=== PATIENT | female | born 1970 | race African-American/Black ===

== ENCOUNTER 2018-02-22 08:16 | Emergency (ER) | payer SELFPAY ==
[~2018-02-22] VITALS: Ht 175.3 cm; Wt 95.3 kg
[~2018-02-22 08:16] MED LIST: CYCLOBENZAPRINE10 MG ORAL; DIAZEPAM5 MG/1 M2 PO; IBUPROFEN600 MG ORAL; IBUPROFEN800 MG ORAL; NITROFURANTOIN100 M2 ORAL; NKM; NORCO 10-325 T1 EACH ORAL; NORCO 5-325 TA1 EACH ORAL; OCUFLOX5 ML OP; PERCOCET 5-3251 EACH ORAL; TRAMADOL HCL50 MG ORAL; TYLENOL EXTRA500 MG ORAL
--- NOTE | 2018-02-22 08:24 | NUR ---
ED Nurse Note: Pt coming from home due to falling down 2 steps of stairs last night at 2200. Pt is complaining of 10/10 right foot pain radiating to her right hip. Pt states that she cannot feel her toes and when she fell last night she heard her foot crack. Right foot and ankle noted to have swelling. No head trauma. A + O x4. Skin warm to touch.
[2018-02-22] MEDS ORDERED: HYDROcodone/Acetamin 10/325 tab ORAL ONE (08:30)
[2018-02-22] MEDS ORDERED: Ketorolac 60mg Inj IM ONE (08:30)
[2018-02-22] MEDS ORDERED: Ketorolac 30mg Inj ONE (08:31)
--- NOTE | 2018-02-22 08:31 | Emergency Room Report ---
History of Present Illness General Chief Complaint: right ankle pain Present Illness HPI Patient is a 47-year-old female presented after increased right ankle and foot pain. Patient had recent injury reportedly last night. Patient stated that this occurred approximately 10 PM. Patient had been walking down stairs and had injured her right ankle down approximately 2-3 steps. She reports having some increased pain patient had been able to go back up stairs with assistance last night. Patient reports of increased pain and swelling. Patient reports being a smoker. She denies of the locations of injury. She denies any headache or other extremity pain. Allergies: Coded Allergies: No Known Allergies (Unverified , 01/02/13) Patient History Past Medical History: see triage record Reviewed Nursing Documentation: PMH: Agreed; PSxH: Agreed Nursing Documentation-PMH Hx Cardiac Problems: No Review of Systems All Other Systems: negative except mentioned in HPI Physical Exam Sp02 EP Interpretation: reviewed, normal General Appearance: normal inspection, well appearing, no apparent distress, alert, mild distress Head: atraumatic ENT: normal ENT inspection, hearing grossly normal, normal voice Neck: normal inspection, full range of motion, supple, no bony tend Respiratory: normal inspection, lungs clear, normal breath sounds, no respiratory distress, no retraction, no wheezing Cardiovascular #1: regular rate, rhythm Gastrointestinal: normal inspection, normal bowel sounds, non tender, soft, no guarding, no hernia Genitourinary: no CVA tenderness Musculoskeletal: back normal, decreased range of motion - right ankle, swelling - right ankle, normal pulses, normal cap refill, tender - anterior ankle,lateral malleolus Neurologic: normal inspection, alert, responsive, speech normal Psychiatric: normal inspection, judgement/insight normal, mood/affect normal Skin: normal inspection, normal color, no rash Medical Decision Making Diagnostic Impression: Primary Impression: High ankle sprain ER Course Patient presented for ankle pain. Differential diagnosis included was not limited to sprain, fracture, dislocation, cellulitis, vascular insufficiency. X -ray imaging of the ankle was ordered. X-ray imaging 3 views interpreted by me showed soft tissue swelling without evident fracture. Patient was placed in a posterior splint and given crutches. The patient's extremity appears well perfused. She has good pulses and there is no sign of vascular compromise. Patient given pain medications. She is advised to keep her ankle elevated and follow-up with orthopedics. Status: improved Disposition: HOME, SELF-CARE Condition: Stable Scripts Ibuprofen* (MOTRIN*) 600 Mg Tablet 600 MG ORAL Q8H PRN for For Pain, #30 TAB 0 Refills Prov: Driss Zambrano MD 02/22/18 Hydrocodone Bit/Acetaminophen 10-325* (NORCO 10-325*) 1 Each Tablet 1 TAB ORAL Q6H PRN for For Pain, #10 TAB 0 Refills PRN PAIN Prov: Driss Zambrano MD 02/22/18 Driss Zambrano MD Feb 22, 2018 08:31
--- NOTE | 2018-02-22 08:42 | NUR ---
ED Nurse Note: Notified pt of need urine from her and pt stated that she has had nothing to drink since last night. Still has no urge to go. Placed a commode at the bedside. Will continue to monitor.
--- NOTE | 2018-02-22 08:49 | NUR ---
ED Nurse Note: Xray at the bedside.
[2018-02-22] MEDS ORDERED: NORCO 10-325 T1 EACH ORAL (09:11)
[2018-02-22] MEDS ORDERED: IBUPROFEN600 MG ORAL (09:11)
[2018-02-22 09:19] VITALS: BP 131/83
--- NOTE | 2018-02-22 09:35 | NUR ---
ED Nurse Note: Waiting for transportation.
--- NOTE | 2018-02-22 09:44 | NUR ---
ED Nurse Note: Discharge instructions given to pt. Answered all questions. Verbalized understanding. No acute distres noted. A+ O x4. Ambulatory. Left ER w/ steady gait. Left w/ all belongings. ID band removed.
--- NOTE | 2018-02-22 15:48 | Diagnostic Imaging Report ---
Indication: Ankle pain, status post fall one day ago Technique: 3 views of the right ankle Comparison: none Findings: No acute fractures. No dislocations. The joint spaces are preserved Impression: Negative
== END 2018-02-22 09:43 | disposition home or self-care (01) ==
LOC: EMR 08:34
DX: S93.401A Sprain of unspecified ligament of right ankle, initial encounter (principal); Y93.01 Activity, walking, marching and hiking; Y92.89 Other specified places as the place of occurrence of the external cause
CPT/HCPCS: 29515; 99283

== ENCOUNTER 2018-06-14 10:25 | Emergency (ER) | payer SELFPAY ==
[~2018-06-14] VITALS: Ht 177.8 cm; Wt 97.5 kg
[2018-06-14 10:41] VITALS: BP 105/71
--- NOTE | 2018-06-14 10:43 | NUR ---
ED Nurse Note: Patient walked in to ER with daughter for Rt ankle pain which started from 2 months ago spraining and pt did not get better since and Lt index finger pain 7/10 whcih started 2 weeks ago since she hit it to car door. edematous noted on Lt 2nd finger. skin clean and intact. pt aao x4 and calm and cooperative.
--- NOTE | 2018-06-14 11:02 | Emergency Room Report ---
History of Present Illness General Chief Complaint: Upper Extremity Injury Source: Patient Present Illness HPI Patient present with complaints of discomfort to the right ankle and the left hand reports that she injured these about 2 weeks ago Hitting it on a car door Patient has discomfort in the base dorsally of the left index and middle finger pain is worse with bending Also the ankle on the right side has increased pain with bearing weight denies any other knee pain denies any head injury Allergies: Coded Allergies: No Known Allergies (Unverified , 01/02/13) Patient History Past Medical History: see triage record Pertinent Family History: none Now: No Reviewed Nursing Documentation: PMH: Agreed; PSxH: Agreed Nursing Documentation-PMH Past Medical History: No History, Except For Hx Cardiac Problems: No - Fibroids Cyst/ Hysterectomy Review of Systems All Other Systems: negative except mentioned in HPI Physical Exam Vital Signs Date Time Temp Pulse Resp B/P (MAP) Pulse Ox O2 Delivery O2 Flow Rate FiO2 06/14/18 10:33 98.1 72 20 105/71 98 06/14/18 10:41 Room Air Sp02 EP Interpretation: reviewed, normal General Appearance: well appearing, no apparent distress Head: normocephalic, atraumatic Eyes: bilateral eye PERRL, bilateral eye EOMI ENT: hearing grossly normal, normal pharynx Neck: supple, thyroid normal Respiratory: lungs clear, no respiratory distress, no retraction Cardiovascular #1: regular rate, rhythm Gastrointestinal: non tender, soft Musculoskeletal: other - Swelling and discomfort to the right ankle bilateral malleoli region, tender on palpation of the base of the left index and middle finger mild swelling noted Neurologic: alert, oriented x3 Skin: other - As above Procedures Splinting Splinting : Consent: Verbal Pre-Made Type: aircast Pre-Proc Neuro Vasc Exam: normal Post-Proc Neuro Vasc Exam: normal Patient Tolerated: Well Complications: None Medical Decision Making Diagnostic Impression: Primary Impression: Injury of upper extremity Additional Impression: Ankle fracture ER Course Given the patient's history and presentation imaging studies were initiated the hand x-ray does not show any acute disease however the right ankle does show questionable distal fibular avulsion fracture patient has splint provided and requires close follow-up Other X-Ray Diagnostic Results Other X-Ray Diagnostic Results #1: X-Ray ordered: Left hand # of Views/Limited Vs Complete: 3 View Indication: Pain EP Interpretation: Yes Interpretation: no dislocation, no soft tissue swelling, no fractures Impression: No acute disease Electronically Signed by: Faby Ma DO Other X-Ray Diagnostic Results #2: X-Ray ordered: Right ankle # of Views/Limited Vs Complete: 3 View Indication: Pain EP Interpretation: Yes Interpretation: no dislocation, no soft tissue swelling, other - Distal fibular avulsion fracture Impression: Other - Acute fracture Electronically Signed by: Faby Ma DO Last Vital Signs Date Time Temp Pulse Resp B/P (MAP) Pulse Ox O2 Delivery O2 Flow Rate FiO2 06/14/18 10:41 98.1 67 20 105/71 98 Room Air Status: improved Disposition: HOME, SELF-CARE Condition: Improved Scripts Ibuprofen* (MOTRIN*) 600 Mg Tablet 600 MG ORAL Q8H PRN for For Pain, #20 TAB 0 Refills Prov: Faby Ma DO 06/14/18 Referrals: NON PHYSICIAN (PCP) Additional Instructions: Patient is provided with the discharge instructions notified to follow up with primary doctor in the next 2-3 days otherwise return to the er with any worsening symptoms. Please note that this report is being documented using [employer] technology. This can lead to erroneous entry secondary to incorrect interpretation by the dictating instrument. Faby Ma DO June 14, 2018 11:02
--- NOTE | 2018-06-14 11:19 | Diagnostic Imaging Report ---
Indication: Trauma, pain Technique: 3 views left hand Comparison: none Findings: Small sclerotic density projects in the terminal tuft of the fourth digit, probably a small ossified fibrous cortical defect. No acute fractures. No dislocations. Impression: No acute process
--- NOTE | 2018-06-14 11:29 | Diagnostic Imaging Report ---
Indication: Reason For Exam: TRAUMA Technique: 3 views of the right ankle Comparison: 02/22/2018 Findings: Small ossific density objects adjacent to the tip of the distal fibula. This is not definitely corticated Not definitely evident on the prior study, although a different projection may have obscured this previously. No other acute fractures. No dislocations. The joint spaces are preserved. There is a small calcaneal spur Impression: Ossific density projecting adjacent to the tip of the distal fibula. This could represent an acute avulsion fracture, although this cannot be stated for certain. Correlate with clinical findings No other acute bony trauma Findings discussed by phone with Dr. Ma at the time of interpretation
--- NOTE | 2018-06-14 11:33 | NUR ---
ED Nurse Note: Eder wrap applied on Rt ankle.
[2018-06-14] MEDS ORDERED: IBUPROFEN600 MG ORAL (11:37)
[2018-06-14 11:49] VITALS: BP 114/72
[2018-06-14 12:10] VITALS: BP 114/72
--- NOTE | 2018-06-14 12:10 | NUR ---
ER DISCHARGE NOTE: Patient is cleared to be discharged per ERMD, pt is aox4, on room air, with stable vital signs. pt was given dc and prescription instructions, pt was able to verbalize understanding, pt id band removed. pt is able to ambulate with steady gait. pt took all belongings.
== END 2018-06-14 12:10 | disposition home or self-care (01) ==
LOC: EMR 10:45
DX: S82.891A Other fracture of right lower leg, initial encounter for closed fracture (principal); S69.92XA Unspecified injury of left wrist, hand and finger(s), initial encounter; W22.8XXA Striking against or struck by other objects, initial encounter; Y92.89 Other specified places as the place of occurrence of the external cause; M77.31 Calcaneal spur, right foot
CPT/HCPCS: 99284

== ENCOUNTER 2018-12-22 09:16 | Inpatient (IN) | payer OTHER ==
[~2018-12-22] VITALS: Ht 177.8 cm; Wt 90.7 kg
[2018-12-22 09:25] VITALS: BP 121/78
--- NOTE | 2018-12-22 09:25 | NUR ---
ED Nurse Note: PAtient walked in to ER due to lower back pain that is radiating to her lower abdomen for 3 days. As per patient, she took OTC meds for pain but doesnt alleviate the symptoms. Has medical hx of Fibroids Cyst/ Hysterectomy. Alert and oriented, verbally responsive. No SOB. Patient is calm but is crying. VSS.
--- NOTE | 2018-12-22 09:27 | NUR ---
ED Nurse Note: IV line established. Blood and urine collected and sent to lab.
[2018-12-22] MEDS ORDERED: Morphine Sulfate 4mg/ml Inj (IV USE ONLY) IVP ONE ×2 (09:45→14:15)
[2018-12-22] MEDS ORDERED: Ketorolac 30mg Inj IV ONE (09:45)
[2018-12-22] MEDS ORDERED: Omnipaque-300 100ml vial INJ PRN (09:45)
[2018-12-22 10:01] LABS: APPEARANCE,URINE SLIGHTLY CLOUDY; BILIRUBIN, URINE NEGATIVE (NEGATIVE); COLOR,URINE AMBER; GLUCOSE, URINE (UA) NEGATIVE (NEGATIVE); KETONES,URINE NEGATIVE (NEGATIVE); LEUKOCYTE ESTERASE ,URINE 1+ (NEGATIVE); NITRITE,URINE NEGATIVE (NEGATIVE); PH,URINE 8 (4.5-8.0); PROTEIN,URINE NEGATIVE (NEGATIVE); UROBILINOGEN,URINE NORMAL MG/DL (0.0-1.0)
[2018-12-22 10:01] LABS: BASOPHILS % (AUTO) 1.5 % (0.0-2.0); EOSINOPHILS % (AUTO) 0.7 % (0.0-3.0); HEMATOCRIT 43.3 % (37.0-47.0); HEMOGLOBIN 14.5 G/DL (12.0-16.0); LYMPHOCYTES % (AUTO) 36.8 % (20.0-45.0); MEAN CORPUSCULAR VOLUME 91 FL (80-99); MONOCYTES % (AUTO) 8.4 % (1.0-10.0); NEUTROPHILS % (AUTO) 52.6 % (45.0-75.0); PLATELET COUNT 350 K/UL (150-450); RED BLOOD COUNT 4.76 M/UL (4.20-5.40); RED CELL DISTRIBUTION WIDTH 11.3 % (11.6-14.8); WHITE BLOOD COUNT 7.2 K/UL (4.8-10.8)
[2018-12-22 10:12] LABS: ANION GAP 11 mmol/L (5-15); BLOOD UREA NITROGEN 9 mg/dL (7-18); CALCIUM 8.5 MG/DL (8.5-10.1); CARBON DIOXIDE 25 MMOL/L (21-32); CHLORIDE 103 MMOL/L (98-107); CREATININE 0.9 MG/DL (0.55-1.30); POTASSIUM 3.5 MMOL/L (3.5-5.1); SODIUM 139 MMOL/L (136-145)
[2018-12-22 10:18] LABS: ALANINE AMINOTRANSFERASE 21 U/L (12-78); ALBUMIN 3.9 G/DL (3.4-5.0); ALBUMIN/GLOBULIN RATIO 0.9 (1.0-2.7); ALKALINE PHOSPHATASE 95 U/L (46-116); ASPARTATE AMINO TRANSFERASE 16 U/L (15-37); BILIRUBIN,TOTAL 0.5 MG/DL (0.2-1.0)
--- NOTE | 2018-12-22 10:29 | NUR ---
ED Nurse Note: Pt taken to CT.
--- NOTE | 2018-12-22 10:43 | NUR ---
ED Nurse Note: Pt came back from CT.
--- NOTE | 2018-12-22 11:16 | Diagnostic Imaging Report ---
Indication: Abdominal pain Technique: Continuous helical transaxial imaging of the abdomen and pelvis was obtained from the lung bases to the pubic symphysis during intravenous contrast administration. Coronal 2-D reformats were also obtained. Study obtained in a Siemens sensation [address] Automatic Exposure Control was utilized. Total Dose length Product (DLP): 1045.[address] Dose Index Volume (CTDIvol): 18.2 mGy Comparison: None Findings: Lung bases are clear. There is a small hiatal hernia. The liver and spleen, pancreas and gallbladder and kidneys are unremarkable. There is no hydronephrosis. Aortoiliac calcifications are noted. There are few diverticula in the colon without evidence of diverticulitis. Uterus noted. Bladder is unremarkable. The appendix is normal. IMPRESSION: No acute findings in the abdomen or pelvis identified. Mild diverticulosis of the colon. No definite evidence of diverticulitis. Normal appendix Atherosclerotic vascular disease. Hiatal hernia. The CT scanner at [facility] is accredited by the [employer] and the scans are performed using dose optimization techniques as appropriate to a performed exam including Automatic Exposure control.
[2018-12-22 12:02] VITALS: BP 125/82
--- NOTE | 2018-12-22 13:54 | Emergency Room Report ---
History of Present Illness General Chief Complaint: Lower Back Pain or Injury Source: Patient Present Illness HPI The patient states that for the past 3 days she has had severe pain in her back on the right and radiating to her R. groin. She denies injury or trauma. She denies weakness, f/c/s, n/v/d. She states that the pain is worse with movement. She states that she has been urinating more often. She has a hx of hysterectomy. She states that the pain is intolerable. 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 She has no other complaints. Allergies: Coded Allergies: No Known Allergies (Unverified , 01/02/13) Patient History Past Medical History: none, see triage record Past Surgical History: hysterectomy Social History: Denies: smoking, alcohol use, drug use Reviewed Nursing Documentation: PMH: Agreed; PSxH: Agreed Nursing Documentation-PMH Past Medical History: No History, Except For Hx Cardiac Problems: No - Fibroids Cyst/ Hysterectomy Review of Systems All Other Systems: negative except mentioned in HPI Physical Exam Vital Signs Date Time Temp Pulse Resp B/P (MAP) Pulse Ox O2 Delivery O2 Flow Rate FiO2 12/22/18 09:18 97.9 80 17 121/78 (92) 99 Room Air Sp02 EP Interpretation: reviewed, normal General Appearance: no apparent distress, alert, GCS 15, non-toxic Head: normocephalic, atraumatic Eyes: bilateral eye normal inspection, bilateral eye PERRL ENT: hearing grossly normal, normal pharynx, no angioedema, normal voice Neck: full range of motion, supple/symm/no masses Respiratory: chest non-tender, lungs clear, normal breath sounds, no respiratory distress, no retraction, no accessory muscle use, speaking full sentences Cardiovascular #1: regular rate, rhythm, no edema Gastrointestinal: normal bowel sounds, soft, non-distended, no guarding, no rebound, tenderness - TTP in the RLQ Rectal: deferred Musculoskeletal: normal inspection, back normal, decreased range of motion, other - +pain with movment R. low back. Pain not reproducible on palpation. Neurologic: alert, oriented x3, responsive, motor strength/tone normal, sensory intact, speech normal Psychiatric: judgement/insight normal, memory normal, mood/affect normal, no suicidal/homicidal ideation Skin: no rash, normal color Medical Decision Making Diagnostic Impression: Primary Impression: Low back pain Additional Impressions: Pelvic pain Chronic pain Intractable pain UTI (urinary tract infection) Laboratory Tests Test 12/22/18 09:30 12/22/18 09:35 Urine Color Alesia Urine Appearance Slightly cloudy Urine pH 8 (4.5-8.0) Urine Specific [place] 1.010 (1.005-1.035) Urine Protein Negative (NEGATIVE) Urine Glucose (UA) Negative (NEGATIVE) Urine Ketones Negative (NEGATIVE) Urine Blood Negative (NEGATIVE) Urine Nitrite Negative (NEGATIVE) Urine Bilirubin Negative (NEGATIVE) Urine Ictotest Nrgative (NEGATIVE) Urine Urobilinogen Normal MG/DL (0.0-1.0) Urine Leukocyte Esterase 1+ (NEGATIVE) H Urine RBC 0 /HPF (0 - 2) Urine WBC 2-4 /HPF (0 - 2) Urine Squamous Epithelial Cells Occasional /LPF Urine Bacteria Few /HPF (NONE) Urine HCG, Qualitative Negative (NEGATIVE) Urine Opiates Screen Positive (NEGATIVE) H Urine Barbiturates Screen Negative (NEGATIVE) Phencyclidine (PCP) Screen Negative (NEGATIVE) Urine Amphetamines Screen Negative (NEGATIVE) Urine Benzodiazepines Screen Negative (NEGATIVE) Urine Cocaine Screen Negative (NEGATIVE) Urine Marijuana (THC) Screen Positive (NEGATIVE) H White Blood Count 7.2 K/UL (4.8-10.8) Red Blood Count 4.76 M/UL (4.20-5.40) Hemoglobin 14.5 G/DL (12.0-16.0) Hematocrit 43.3 % (37.0-47.0) Mean Corpuscular Volume 91 FL (80-99) Mean Corpuscular Hemoglobin 30.4 PG (27.0-31.0) Mean Corpuscular Hemoglobin Concent 33.4 G/DL (32.0-36.0) Red Cell Distribution Width 11.3 % (11.6-14.8) L Platelet Count 350 K/UL (150-450) Mean Platelet Volume 6.6 FL (6.5-10.1) Neutrophils (%) (Auto) 52.6 % (45.0-75.0) Lymphocytes (%) (Auto) 36.8 % (20.0-45.0) Monocytes (%) (Auto) 8.4 % (1.0-10.0) Eosinophils (%) (Auto) 0.7 % (0.0-3.0) Basophils (%) (Auto) 1.5 % (0.0-2.0) Sodium Level 139 MMOL/L (136-145) Potassium Level 3.5 MMOL/L (3.5-5.1) Chloride Level 103 MMOL/L (98-107) Carbon Dioxide Level 25 MMOL/L (21-32) Anion Gap 11 mmol/L (5-15) Blood Urea Nitrogen 9 mg/dL (7-18) Creatinine 0.9 MG/DL (0.55-1.30) Estimate Glomerular Filtration Rate > 60 mL/min (>60) Glucose Level 94 MG/DL (74-106) Calcium Level 8.5 MG/DL (8.5-10.1) Total Bilirubin 0.5 MG/DL (0.2-1.0) Aspartate Amino Transferase (AST) 16 U/L (15-37) Alanine Aminotransferase (ALT) 21 U/L (12-78) Alkaline Phosphatase 95 U/L (46-116) Total Protein 8.2 G/DL (6.4-8.2) Albumin 3.9 G/DL (3.4-5.0) Globulin 4.3 g/dL Albumin/Globulin Ratio 0.9 (1.0-2.7) L Lipase 85 U/L (73-393) CT/MRI/US Diagnostic Results CT/MRI/US Diagnostic Results : Imaging Test Ordered: CT abd/pelvis Impression IMPRESSION: No acute findings in the abdomen or pelvis identified. Mild diverticulosis of the colon. No definite evidence of diverticulitis. Normal appendix Atherosclerotic vascular disease. Hiatal hernia. Last Vital Signs Date Time Temp Pulse Resp B/P (MAP) Pulse Ox O2 Delivery O2 Flow Rate FiO2 12/22/18 10:19 97.9 12/22/18 09:25 98 17 121/78 99 Room Air Disposition: ADMITTED INPATIENT Condition: Stable Scripts Methylprednisolone (Methylprednisolone*) 4MG Dspk 4 MG ORAL DIRECTED for 6 Days, #21 EA 0 Refills Day 1: Two tablets before breakfast, one after lunch, one after dinner, and two at bedtime. If started late in the day, take all six tablets at once or divide into two or three doses, unless otherwise directed by prescriber. Day 2: One tablet before breakfast, one after lunch, one after dinner, and two at bedtime Day 3: One tablet before breakfast, one after lunch, one after dinner, and one at bedtime Day 4: One tablet before breakfast, one after lunch, and one at bedtime Day 5: One tablet before breakfast and one at bedtime Day 6: One tablet before breakfast Prov: Khanh Simmons M.D. 12/26/18 Hydrocodone Bit/Acetaminophen 5-325* (NORCO 5-325*) 1 Each Tablet 1 TAB ORAL Q6H PRN, #10 TAB 0 Refills Prov: Khanh Simmons M.D. 12/26/18 Methocarbamol* (ROBAXIN-500*) 500 Mg Tablet 500 MG ORAL Q8H PRN for 7 Days, #21 TAB Prov: Khanh Simmons M.D. 12/26/18 Gabapentin* (GABAPENTIN*) 100 Mg Capsule 300 MG ORAL THREE TIMES A DAY for 7 Days, #21 CAP Prov: Khanh Simmons M.D. 12/26/18 Referrals: PELON COHEN,REFERRING (PCP) Megan Rios DO Dec 22, 2018 13:54
[2018-12-22 14:52] VITALS: BP 131/76
--- NOTE | 2018-12-22 15:54 | History and Physical ---
History of Present Illness General Date patient seen: Dec 22, 2018 Reason for Hospitalization: Lower Back Pain or Injury Present Illness HPI This is a 48-year-old female who presented to the ER after couple of days of severe lower back pain to the point she could not get out of bed and urinated herself. Patient says until the past couple of days she was in her usual state of health. 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 Patient complains of 10 out of 10 severe lower back pain radiating to her pelvis. Pain is aggravated by movement, no alleviating factors. Patient complains of urinary frequency, denies dysuria or hematuria. Patient denies any bowel incontinence. And after that episode where she was in so much pain that she could not get out of bed to go to the bathroom she has not had any episodes of urinary incontinence. Patient denies fevers, chills, sick contacts, recent travel. She denies getting frequent UTIs. She denies new sexual partner. During my interview patient is on and off on the phone. Denies any loss of sensation in her lower extremities. Has full power and strength in bilateral upper extremities however finds it very hard to lift both her legs from severe weakness. Patient denies any chest pain , shortness of breath, palpitations Past medical history: None per patient Past surgical history: Hysterectomy Family history: Mom of liver cancer at a young age and had a stroke Social history: Works as a hairdresser denies toxic habits Allergies: Coded Allergies: No Known Allergies (Unverified , 01/02/13) Medication History Scheduled Cyclobenzaprine Hcl* (Flexeril*), 10 MG ORAL Q8HR Ibuprofen* (Motrin*), 800 MG ORAL Q8H Nitrofurantoin Monohyd/M-Cryst* (Macrobid 100 Mg*), 100 MG ORAL EVERY 12 HOURS No Known Medications* (NKM - No Known Medications*), ., (Reported) Ofloxacin (Ocuflox), 3 ML OP TID Scheduled PRN Acetaminophen* (Tylenol Extra Strength*), 500 MG ORAL Q6H PRN for Mild Pain/ Temp > 100.5 Hydrocodone Bit/Acetaminophen 10-325* ([place] 10-325*), 1 TAB ORAL Q6H PRN for For Pain Hydrocodone Bit/Acetaminophen 5-325* ([place] 5-325*), 1 TAB ORAL Q6H PRN for For Pain Ibuprofen* (Motrin*), 600 MG ORAL Q8H PRN for For Pain Ibuprofen* (Motrin*), 600 MG ORAL Q8H PRN for For Pain Ibuprofen* (Motrin*), 600 MG ORAL Q8H PRN for For Pain Oxycodone/Acetaminophen 5-325* (Percocet 5-325 Mg Tablet*), 1 TAB ORAL Q6H PRN for For Pain Patient History Healthcare decision maker Resuscitation status Advanced Directive on File Review of Systems Constitutional: Reports: weakness; Denies: no symptoms, see HPI, chills, sweats , fever, malaise, other Eye: Denies: no symptoms, see HPI, eye pain, blurred vision, tearing, double vision, nose pain, nose congestion, acuity changes, discharge, other ENT: Denies: no symptoms, see HPI, ear pain, ear discharge, nose pain, nose congestion, throat pain, throat swelling, mouth pain, hearing loss, nasal discharge, other Respiratory: Denies: no symptoms, see HPI, cough, orthopnea, shortness of breath, stridor, wheezing, SAWYER, sputum, other Cardiovascular: Denies: no symptoms, see HPI, chest pain, edema, palpitations, syncope, PND, other Gastrointestinal: Denies: no symptoms, see HPI, abdominal pain, constipation, diarrhea, nausea, vomiting, melena, hematemesis, other Genitourinary: Reports: frequency, incontinence, urgency; Denies: no symptoms, see HPI, discharge, dysuria, hematuria, pain, retention, vag bleed/dc, other Musculoskeletal: Reports: back pain; Denies: no symptoms, see HPI, gout, joint pain, joint swelling, muscle pain, muscle stiffness, other Skin: Denies: no symptoms, see HPI, rash, change in color, change in hair/nails , dryness, lesions, other Psychiatric: Denies: no symptoms, see HPI, prior hx, anxiety, depressed feelings, emotional problems, SI, HI, hallucinations, other Neurological: Denies: no symptoms, see HPI, headache, numbness, paresthesia, seizure, tingling, tremors, focal weakness, syncope, dizziness, other Endocrine: Denies: no symptoms, see HPI, excessive sweating, flushing, intolerance to temperature, increased thirst, increased urine, unexplained weight loss, other Hematologic/Lymphatic: Denies: no symptoms, see HPI, anemia, blood clots, easy bleeding, easy bruising, swollen glands, diathesis, other Physical Exam General Appearance: WD/WN, no apparent distress, other - Older than stated age Lines, tubes and drains: peripheral HEENT: normocephalic, atraumatic, anicteric, PERRL, no JVD Neck: non-tender, supple Respiratory/Chest: chest wall non-tender, lungs clear, normal breath sounds, no respiratory distress, no accessory muscle use Cardiovascular/Chest: normal rate, regular rhythm Abdomen: normal bowel sounds, non tender, soft, no mass Genitourinary/Rectal: other - Bilateral CVA tenderness Extremities: normal capillary refill, no edema Skin Exam: normal pigmentation, warm/dry Neurologic: rn ambulatory II-XII grossly normal, alert, oriented x 3, responsive, normal mood/affect, motor weakness - bilateral lower extremities 3/5 Musculoskeletal: normal muscle bulk Last 24 Hour Vital Signs Date Time Temp Pulse Resp B/P (MAP) Pulse Ox O2 Delivery O2 Flow Rate FiO2 12/22/18 14:52 98.2 77 18 131/76 97 Room Air 12/22/18 14:43 97.9 12/22/18 12:02 98.2 82 19 125/82 99 Room Air 12/22/18 10:19 97.9 12/22/18 10:19 97.9 12/22/18 09:25 97.9 98 17 121/78 99 Room Air 12/22/18 09:18 97.9 80 17 121/78 (92) 99 Room Air Laboratory Tests Test 12/22/18 09:30 12/22/18 09:35 Urine Color [place] Urine Appearance Slightly cloudy Urine pH 8 (4.5-8.0) Urine Specific [place] 1.010 (1.005-1.035) Urine Protein Negative (NEGATIVE) Urine Glucose (UA) Negative (NEGATIVE) Urine Ketones Negative (NEGATIVE) Urine Blood Negative (NEGATIVE) Urine Nitrite Negative (NEGATIVE) Urine Bilirubin Negative (NEGATIVE) Urine Ictotest Nrgative (NEGATIVE) Urine Urobilinogen Normal MG/DL (0.0-1.0) Urine Leukocyte Esterase 1+ (NEGATIVE) H Urine RBC 0 /HPF (0 - 2) Urine WBC 2-4 /HPF (0 - 2) Urine Squamous Epithelial Cells Occasional /LPF Urine Bacteria Few /HPF (NONE) Urine HCG, Qualitative Negative (NEGATIVE) Urine Opiates Screen Positive (NEGATIVE) H Urine Barbiturates Screen Negative (NEGATIVE) Phencyclidine (PCP) Screen Negative (NEGATIVE) Urine Amphetamines Screen Negative (NEGATIVE) Urine Benzodiazepines Screen Negative (NEGATIVE) Urine Cocaine Screen Negative (NEGATIVE) Urine Marijuana (THC) Screen Positive (NEGATIVE) H White Blood Count 7.2 K/UL (4.8-10.8) Red Blood Count 4.76 M/UL (4.20-5.40) Hemoglobin 14.5 G/DL (12.0-16.0) Hematocrit 43.3 % (37.0-47.0) Mean Corpuscular Volume 91 FL (80-99) Mean Corpuscular Hemoglobin 30.4 PG (27.0-31.0) Mean Corpuscular Hemoglobin Concent 33.4 G/DL (32.0-36.0) Red Cell Distribution Width 11.3 % (11.6-14.8) L Platelet Count 350 K/UL (150-450) Mean Platelet Volume 6.6 FL (6.5-10.1) Neutrophils (%) (Auto) 52.6 % (45.0-75.0) Lymphocytes (%) (Auto) 36.8 % (20.0-45.0) Monocytes (%) (Auto) 8.4 % (1.0-10.0) Eosinophils (%) (Auto) 0.7 % (0.0-3.0) Basophils (%) (Auto) 1.5 % (0.0-2.0) Sodium Level 139 MMOL/L (136-145) Potassium Level 3.5 MMOL/L (3.5-5.1) Chloride Level 103 MMOL/L (98-107) Carbon Dioxide Level 25 MMOL/L (21-32) Anion Gap 11 mmol/L (5-15) Blood Urea Nitrogen 9 mg/dL (7-18) Creatinine 0.9 MG/DL (0.55-1.30) Estimat Glomerular Filtration Rate > 60 mL/min (>60) Glucose Level 94 MG/DL (74-106) Calcium Level 8.5 MG/DL (8.5-10.1) Total Bilirubin 0.5 MG/DL (0.2-1.0) Aspartate Amino Transf (AST/SGOT) 16 U/L (15-37) Alanine Aminotransferase (ALT/SGPT) 21 U/L (12-78) Alkaline Phosphatase 95 U/L (46-116) Total Protein 8.2 G/DL (6.4-8.2) Albumin 3.9 G/DL (3.4-5.0) Globulin 4.3 g/dL Albumin/Globulin Ratio 0.9 (1.0-2.7) L Lipase 85 U/L (73-393) Height (Feet): 5 Height (Inches): 10.00 Weight (Pounds): 200 Medications Current Medications Medications (Trade) Dose Ordered Sig/El Route PRN Reason Start Time Stop Time Status Last Admin Dose Admin Iohexol (OMNIPAQUE-300 100ml) 100 ml NOW PRN INJ Radiology Procedure 12/22/18 09:45 12/24/18 09:39 Objective Narrative CBC unremarkable, BMP unremarkable, urine tox: Positive for marijuana and opiates. UA nitrite negative leukocyte Estrase +1, WBC 3-4, bacteria few, CT abdomen pelvis: No acute findings in the abdomen or pelvis identified. Mild diverticulosis of the colon. No definite evidence of diverticulitis. Normal appendix Atherosclerotic vascular disease. Hiatal hernia. Assessment/Plan Problem List: (1) UTI (urinary tract infection) ICD Codes: N39.0 - Urinary tract infection, site not specified SNOMED: 31481940 (2) Low back pain ICD Codes: M54.5 - Low back pain SNOMED: 444102714 (3) Inability to walk ICD Codes: R26.2 - Difficulty in walking, not elsewhere classified SNOMED: 654214170 (4) Intractable pain ICD Codes: R52 - Pain, unspecified SNOMED: 47645267 Status: stable Assessment/Plan: This is a 48-year-old female who presented with severe 10 out of 10 low back pain radiating to her pelvis, urinary frequency and incontinence, bilateral CVA tenderness on exam. Inability to walk secondary to intractable pain. #UTI/pyelonephritis #Intractable low back pain and inability to walk likely secondary to urinary tract infection. Rule out any lumbar pathology Place on observation- MedSurg IV ceftriaxone 1 g daily IV NS at 75 mL/hr Follow-up urine culture MRI L-spine without contrast Pain control with acetaminophen, Dilaudid. Physical therapy consult VTE PPX: Lovenox Gi ppx: None Code status: full code I spent 70 minutes on this encounter. Greater than 50% spent on counseling and care coordination. Case discussed with ED physician and patient. Khanh Simmons M.D. Dec 22, 2018 15:54
[2018-12-22] MEDS ORDERED: Milk of Magnesia 30ml Ud ORAL PRN (16:00)
[2018-12-22] MEDS ORDERED: Albuterol/Ipratropium 3ml neb HHN PRN (16:00)
[2018-12-22] MEDS ORDERED: LORazepam Inj 2mg/ml 1ml IV PRN (16:00)
[2018-12-22] MEDS ORDERED: Miralax 17gm pkt ORAL PRN (16:00)
--- NOTE | 2018-12-22 16:10 | NUR ---
ED Nurse Note: Report given to Abelardo CELIS from [facility].
--- NOTE | 2018-12-22 16:15 | NUR ---
NURSE NOTES: received report from ER. patient will be admitted to [facility] Ronen magana. dx woth Abd pain.
[2018-12-22 16:55] VITALS: BP 129/77
--- NOTE | 2018-12-22 16:55 | NUR ---
TRANSFER TO FLOOR: Patient transferred to [facility]. Report given to Po CELIS. Pt alert and oriented. Still c/o 8/10 pain. No SOB. Breathing even and unlabored. IV line on right AC 20g, patent and intact. VSS. Med recon done. All belongings was sent with the patient. Family and or S/O informed of transfer.
[2018-12-22] MEDS: Enoxaparin 40mg Inj SUBQ SCH (17:10)
[2018-12-22] MEDS: cefTRIAXone 1 GM in D5W 55 ML IVPB SCH (17:23)
--- NOTE | 2018-12-22 17:30 | NUR ---
NURSE NOTES: patient admitted to [facility] Ronen magana. alert. oriented. verbally responsive. c/o pain on abd and lower back. IV on RAC 20 intact. put bed side comode for safety Patient need assist for using comode d/t pain. placed call light within reach. bed in the lowest position and locked. VS 128/77-67,98.2,98%,22 will continue to follow up admission orders
--- NOTE | 2018-12-22 19:33 | NUR ---
NURSE NOTES: RN checked and counted belongings with patient and ER nurse, LALITA Harmon.
--- NOTE | 2018-12-22 19:33 | NUR ---
HAND-OFF: Report given to LALITA Bahena.
--- NOTE | 2018-12-22 19:46 | NUR ---
NURSE NOTES: RECEIVED PT FROM LALITA REDDING. PT IS AWAKE, AAOX4, ON ROOM AIR, NO ACUTE DISTRESS NOTED. IV ON RIGHT AC 20G IS INTACT AND PATENT. RUNNING NS AT 75ML/HR. PELVIS ULTRASOUND IN PROCESS AT BEDSIDE. BED IS LOCKED AND LOW, BED ALARMS ACTIVE, SIDE RAILS UP X2 AND CALL LIGHT IS WITHIN REACH. WILL CONTINUE TO MONITOR.
[2018-12-22 20:00] VITALS: BP 117/69
[2018-12-22] MEDS: Docusate 100mg cap ORAL SCH (20:48)
[2018-12-23] VITALS: BP 122/70
[2018-12-23 04:00] VITALS: BP 110/68
[2018-12-23 06:15] LABS: BASOPHILS % (AUTO) 1.3 % (0.0-2.0); HEMATOCRIT 37.1 % (37.0-47.0); HEMOGLOBIN 12.7 G/DL (12.0-16.0); LYMPHOCYTES % (AUTO) 36.1 % (20.0-45.0); MEAN CORPUSCULAR VOLUME 91 FL (80-99); NEUTROPHILS % (AUTO) 51.7 % (45.0-75.0); PLATELET COUNT 289 K/UL (150-450); RED BLOOD COUNT 4.07 M/UL (4.20-5.40); RED CELL DISTRIBUTION WIDTH 11.3 % (11.6-14.8); WHITE BLOOD COUNT 7.5 K/UL (4.8-10.8)
[2018-12-23 06:26] LABS: ALANINE AMINOTRANSFERASE 17 U/L (12-78); ALBUMIN/GLOBULIN RATIO 0.8 (1.0-2.7); ALKALINE PHOSPHATASE 76 U/L (46-116); ANION GAP 8 mmol/L (5-15); ASPARTATE AMINO TRANSFERASE 11 U/L (15-37); BILIRUBIN,TOTAL 0.5 MG/DL (0.2-1.0); BLOOD UREA NITROGEN 7 mg/dL (7-18); CALCIUM 8.2 MG/DL (8.5-10.1); CARBON DIOXIDE 26 MMOL/L (21-32); CHLORIDE 107 MMOL/L (98-107); CREATININE 0.7 MG/DL (0.55-1.30); POTASSIUM 3.9 MMOL/L (3.5-5.1); SODIUM 141 MMOL/L (136-145)
--- NOTE | 2018-12-23 07:33 | NUR ---
HAND-OFF: Report given to LALITA CRISTINA.
[2018-12-23] MEDS: HYDROmorphone 1mg/ml Carpuject IVP PRN ×2 (07:43→17:29)
[2018-12-23 08:00] VITALS: BP 110/65
--- NOTE | 2018-12-23 08:07 | NUR ---
NURSE NOTES: Received pt from Shruti, RN, pt was resting c/o lower back pain. call light w/in reach.
[2018-12-23] MEDS: Docusate 100mg cap ORAL SCH ×2 (09:07→21:00)
[2018-12-23] MEDS: Enoxaparin 40mg Inj SUBQ SCH (09:09)
[2018-12-23 12:00] VITALS: BP 114/71
--- NOTE | 2018-12-23 12:21 | General Progress Note ---
Assessment/Plan Status: stable Assessment/Plan: Assessment/Plan Problem List: (1) UTI (urinary tract infection) ICD Codes: N39.0 - Urinary tract infection, site not specified SNOMED: 86447429 (2) Low back pain ICD Codes: M54.5 - Low back pain SNOMED: 069734367 (3) Inability to walk ICD Codes: R26.2 - Difficulty in walking, not elsewhere classified SNOMED: 362520701 (4) Intractable pain ICD Codes: R52 - Pain, unspecified SNOMED: 81897811 Status: stable Assessment/Plan: This is a 48-year-old female who presented with severe 10 out of 10 low back pain radiating to her pelvis, urinary frequency and incontinence, bilateral CVA tenderness on exam. Inability to walk secondary to intractable pain. #UTI per admission assessment and started on Ceftriaxone. - UA has very few WBC and culture will be reviewed. Continue for now and I doubt there is a true infection with current UA. #Intractable low back pain and inability to walk ? secondary to urinary tract infection vs Rule out any lumbar pathology Upgrade to Inpatient MedSurg IV ceftriaxone 1 g daily IV NS at 75 mL/hr Follow-up urine culture MRI L-spine without contrast will be done Tuesday. Pain control with acetaminophen, Dilaudid. Physical therapy consult pending final report Trial of lidocaine patch to the lumbar area. VTE PPX: Lovenox Gi ppx: None Code status: full code I spent 70 minutes on this encounter. Greater than 50% spent on counseling and care coordination. Case discussed with RN and patient. Subjective Date patient seen: Dec 23, 2018 Time patient seen: 11:20 ROS Limited/Unobtainable: No Constitutional: Reports: weakness HEENT: Reports: no symptoms Cardiovascular: Reports: no symptoms Respiratory: Reports: no symptoms Gastrointestinal/Abdominal: Reports: no symptoms Genitourinary: Reports: no symptoms Neurologic/Psychiatric: Reports: weakness, other - lower extremities, denies numbness, no urinary or stool incontinence Endocrine: Reports: no symptoms Hematologic/Lymphatic: Reports: no symptoms Allergies: Coded Allergies: No Known Allergies (Unverified , 01/02/13) All Systems: reviewed and negative except above Subjective She was able to stand up and ambulate with FWW and PT support. Still feels weak in her legs and reports that all started in her knees with lumbar pain and muscle spasm that radiates to the hypogastric area. No emesis, no abdominal pain. Objective Last 24 Hour Vital Signs Date Time Temp Pulse Resp B/P (MAP) Pulse Ox O2 Delivery O2 Flow Rate FiO2 12/23/18 08:00 97.9 18 110/65 (80) 98 12/23/18 07:58 Room Air 12/23/18 04:00 97.3 52 18 110/68 (82) 100 12/23/18 00:00 97.3 57 18 122/70 (87) 98 12/22/18 21:00 Room Air 12/22/18 20:00 97.3 55 18 117/69 (85) 97 12/22/18 16:55 98.5 80 19 129/77 100 Room Air 12/22/18 16:55 98.5 80 19 129/77 100 Room Air 12/22/18 16:30 Room Air 12/22/18 14:52 98.2 77 18 131/76 97 Room Air 12/22/18 14:43 97.9 Intake and Output 12/22/18 12/23/18 19:00 07:00 Intake Total 1305 ml 795 ml Balance 1305 ml 795 ml Intake Oral 120 ml 120 ml IV Total 1185 ml 675 ml # Voids 2 1 Laboratory Tests 12/23/18 05:20: White Blood Count 7.5, Red Blood Count 4.07L, Hemoglobin 12.7, Hematocrit 37.1, Mean Corpuscular Volume 91, Mean Corpuscular Hemoglobin 31.1H, Mean Corpuscular Hemoglobin Concent 34.1, Red Cell Distribution Width 11.3L, Platelet Count 289, Mean Platelet Volume 7.2, Neutrophils (%) (Auto) 51.7, Lymphocytes (%) (Auto) 36.1, Monocytes (%) (Auto) 9.0, Eosinophils (%) (Auto) 2.0, Basophils (%) (Auto ) 1.3, Sodium Level 141, Potassium Level 3.9, Chloride Level 107, Carbon Dioxide Level 26, Anion Gap 8, Blood Urea Nitrogen 7, Creatinine 0.7, Estimat Glomerular Filtration Rate > 60, Glucose Level 86, Calcium Level 8.2L, Total Bilirubin 0.5, Aspartate Amino Transf (AST/SGOT) 11L, Alanine Aminotransferase ( ALT/SGPT) 17, Alkaline Phosphatase 76, Total Protein 6.7, Albumin 3.0L, Globulin 3.7, Albumin/Globulin Ratio 0.8L Height (Feet): 5 Height (Inches): 10.00 Weight (Pounds): 200 General Appearance: WD/WN, no apparent distress, overweight EENT: PERRL/EOMI Neck: non-tender, normal alignment Cardiovascular: normal peripheral pulses, normal rate Respiratory/Chest: lungs clear, normal breath sounds Abdomen: non tender, soft Extremities: normal range of motion Neurologic: electronic court recorder II-XII grossly normal, oriented x 3, responsive, other - 4/5 strength in the R foot flexion noted Skin: normal pigmentation Salvador Castañeda MD Dec 23, 2018 12:21
--- NOTE | 2018-12-23 14:42 | NUR ---
PT note PT lexa completed, treatment initiated. Patient c/o severe pain in her low back with cervical forward flexion and with dorsiflexion and knee extension. RN and CN were made aware. Patient has an order for an MRI of the lumbar spine, still pending. Patient needs PT services to increase her muscle strength and to decrease pain.to improve her functional mobility and gait. Addendum: 12/23/18 at 1443 by WILFRID VIDAL PT Amended: Links added.
[2018-12-23 16:00] VITALS: BP 119/69
[2018-12-23] MEDS: cefTRIAXone 1 GM in D5W 55 ML IVPB SCH (17:29)
--- NOTE | 2018-12-23 18:04 | NUR ---
CASE MANAGEMENT: INITIAL REVIEW 48 YO F PRESENTED TO ED FROM HOME CC: LOWER BACK PAIN PMHx: Fibroids Cyst/ Hysterectomy SI:INTRACTABLE PAIN. T 97.9 HR 80 RR 17 B/P 121/78 SATS 99% ON RA LABS: UTOX (+OPIATES AND THC) IS: TORADOL IV X1 MORPHINE IV X2 NS BOLUS X1 PATIENT ADMITTED TO MED/SURG 12/22/2018 @ 1712 DCP: PATIENT TO BE DISCHARGED TO HOME ONCE MEDICALLY CLEARED
--- NOTE | 2018-12-23 19:29 | NUR ---
HAND-OFF: Report given to LALITA Bahena. pt is in stable condition..
--- NOTE | 2018-12-23 19:38 | NUR ---
NURSE NOTES: RECEIVED PT FROM LALITA CRISTINA. PT IS ASLEEP, ON ROOM AIR, NO ACUTE DISTRESS NOTED. IV ON RGHT AC 20G IS INTACT AND PATENT. COMMODE IS AT BEDSIDE. BED IS LOCKED AND LOW, BED ALARMS ACTIVE, SIDE RAILS UP X2 AND CALL LIGHT IS WITHIN REACH. WILL CONTINUE TO MONITOR.
[2018-12-23 20:00] VITALS: BP 115/70
[2018-12-24] VITALS: BP 120/67
[2018-12-24 04:00] VITALS: BP 115/68
--- NOTE | 2018-12-24 06:49 | NUR ---
NURSE NOTES: PATIENT IS ASLEEP WITH PILLOWS SUPPORTING BACK. WILL CONTINUE TO MONITOR.
[2018-12-24 07:01] LABS: ANION GAP 11 mmol/L (5-15); BLOOD UREA NITROGEN 7 mg/dL (7-18); CALCIUM 8.4 MG/DL (8.5-10.1); CARBON DIOXIDE 24 MMOL/L (21-32); CHLORIDE 106 MMOL/L (98-107); CREATININE 0.7 MG/DL (0.55-1.30); POTASSIUM 3.7 MMOL/L (3.5-5.1); SODIUM 141 MMOL/L (136-145)
[2018-12-24 07:11] LABS: BASOPHILS % (AUTO) 1.4 % (0.0-2.0); EOSINOPHILS % (AUTO) 2.2 % (0.0-3.0); HEMATOCRIT 36.9 % (37.0-47.0); HEMOGLOBIN 12.5 G/DL (12.0-16.0); LYMPHOCYTES % (AUTO) 39.2 % (20.0-45.0); MEAN CORPUSCULAR VOLUME 91 FL (80-99); MONOCYTES % (AUTO) 9.6 % (1.0-10.0); NEUTROPHILS % (AUTO) 47.6 % (45.0-75.0); PLATELET COUNT 260 K/UL (150-450); RED BLOOD COUNT 4.07 M/UL (4.20-5.40); RED CELL DISTRIBUTION WIDTH 11.3 % (11.6-14.8); WHITE BLOOD COUNT 7.4 K/UL (4.8-10.8)
--- NOTE | 2018-12-24 07:21 | NUR ---
HAND-OFF: Report given to LALITA Farooq. Patient is in stable condition. Endorsed plan of care
--- NOTE | 2018-12-24 07:30 | NUR ---
NURSE NOTES: pt awake alert, no distress. no sob. c/o 9/10 back pain and abdominal pain, will give prn dilaudid as ordered and monitor effectiveness. call light within reach. will monitor.
[2018-12-24 07:58] VITALS: BP 111/94
--- NOTE | 2018-12-24 08:06 | NUR ---
NURSE NOTES: pt states dilaudid was effective however she states her pain is chronic but at this time patient is not complaining of any pain, call light within reach will monitor.
[2018-12-24] MEDS: Docusate 100mg cap ORAL SCH ×2 (08:08→20:49)
[2018-12-24] MEDS: Enoxaparin 40mg Inj SUBQ SCH (08:08)
[2018-12-24 12:00] VITALS: BP 115/62
--- NOTE | 2018-12-24 12:18 | General Progress Note ---
Assessment/Plan Status: stable Assessment/Plan: Assessment/Plan Problem List: (1) UTI (urinary tract infection) ICD Codes: N39.0 - Urinary tract infection, site not specified SNOMED: 14569315 (2) Low back pain ICD Codes: M54.5 - Low back pain SNOMED: 170941934 (3) Inability to walk ICD Codes: R26.2 - Difficulty in walking, not elsewhere classified SNOMED: 916379352 (4) Intractable pain ICD Codes: R52 - Pain, unspecified SNOMED: 90089661 Status: stable Assessment/Plan: This is a 48-year-old female who presented with severe 10 out of 10 low back pain radiating to her pelvis, urinary frequency and incontinence, bilateral CVA tenderness on exam. Inability to walk secondary to intractable pain. #UTI per admission assessment and started on Ceftriaxone. - UA has very few WBC and culture will be reviewed. Continue for now and I doubt there is a true infection with current UA. #Intractable low back pain and inability to walk ? secondary to urinary tract infection vs Rule out any lumbar pathology Upgraded to Inpatient MedSurg IV ceftriaxone 1 g daily IV NS at 75 mL/hr stopped. Follow-up urine culture NOT FOUND. by UA result WBC are limited. s/p treatment 3 day course. MRI L-spine without contrast will be done Tuesday. Next steps in therapy pending MRI Pain control with acetaminophen, Dilaudid. Physical therapy consult reviewed. PT FOLLOW UP recommended. Trial of lidocaine patch to the lumbar area did not help overnight. # Hypomagnesemia - Replete - AM lab # Obesity - Education and counselling. VTE PPX: Lovenox Gi ppx: None Code status: full code I spent 50 minutes on this encounter. Greater than 50% spent on counseling and care coordination. Case discussed with RN and patient. Subjective Date patient seen: Dec 24, 2018 Time patient seen: 11:00 Allergies: Coded Allergies: No Known Allergies (Unverified , 01/02/13) All Systems: reviewed and negative except above Subjective She was able to stand up and ambulate with FWW and PT support. Still feels weak in her legs and reports that all started in her knees with lumbar pain and muscle spasm that radiates to the R hypogastric area. No emesis, no abdominal pain. Reported a small knot in her lumbar R sided area. Objective Last 24 Hour Vital Signs Date Time Temp Pulse Resp B/P (MAP) Pulse Ox O2 Delivery O2 Flow Rate FiO2 12/24/18 08:06 98.3 12/24/18 08:06 98.3 12/24/18 07:58 Room Air 12/24/18 07:58 98.3 57 18 111/94 (100) 98 12/24/18 04:00 98.3 87 18 115/68 (84) 98 12/24/18 00:00 98.3 51 17 120/67 (84) 98 12/23/18 21:00 Room Air 12/23/18 20:00 98.4 51 16 115/70 (85) 98 12/23/18 16:00 98.9 59 18 119/69 (86) 99 Intake and Output 12/23/18 12/24/18 19:00 07:00 Intake Total 525 ml Balance 525 ml IV Total 525 ml # Voids 3 2 Laboratory Tests 12/24/18 05:15: White Blood Count 7.4, Red Blood Count 4.07L, Hemoglobin 12.5, Hematocrit 36.9L , Mean Corpuscular Volume 91, Mean Corpuscular Hemoglobin 30.8, Mean Corpuscular Hemoglobin Concent 34.0, Red Cell Distribution Width 11.3L, Platelet Count 260, Mean Platelet Volume 6.9, Neutrophils (%) (Auto) 47.6, Lymphocytes (%) (Auto) 39.2, Monocytes (%) (Auto) 9.6, Eosinophils (%) (Auto) 2.2, Basophils (%) (Auto) 1.4, Sodium Level 141, Potassium Level 3.7, Chloride Level 106, Carbon Dioxide Level 24, Anion Gap 11, Blood Urea Nitrogen 7, Creatinine 0.7, Estimat Glomerular Filtration Rate > 60, Glucose Level 74, Calcium Level 8.4L, Magnesium Level 1.5L Height (Feet): 5 Height (Inches): 10.00 Weight (Pounds): 200 General Appearance: WD/WN, no apparent distress EENT: PERRL/EOMI, normal ENT inspection Neck: non-tender, normal alignment Cardiovascular: normal rate, regular rhythm Respiratory/Chest: lungs clear, normal breath sounds Abdomen: non tender, soft Neurologic: counterintelligence/humint specialist II-XII grossly normal Skin: normal pigmentation, other - small 0.5 x 0.5 cm nodularity noted in the R paraspinal area L 3-4 Salvador Castañeda MD Dec 24, 2018 12:18
--- NOTE | 2018-12-24 13:14 | NUR ---
NURSE NOTES: relayed to dr Castañeda re trend of heart rate and no initial ekg on chart/computer seen , patient asymptomatic , per md if hr <50 can do ekg, otherwise monitor.
[2018-12-24 16:00] VITALS: BP 121/75
[2018-12-24] MEDS: cefTRIAXone 1 GM in D5W 55 ML IVPB SCH (17:15)
--- NOTE | 2018-12-24 19:21 | NUR ---
HAND-OFF: Report given to ANDREWS CELIS.
--- NOTE | 2018-12-24 19:25 | NUR ---
NURSE NOTES: Received report from LALITA Farooq. Patient asleep, no distress noted. Bed in low position and locked, side rails up x2, call light within reach. IV infusing well in L hand. Will continue to monitor.
[2018-12-24 20:00] VITALS: BP 126/73
[2018-12-25 04:00] VITALS: BP 99/58
--- NOTE | 2018-12-25 04:25 | NUR ---
NURSE NOTES: Patient complained of shortness of breath, charge nurse called RT. VSS. RT here to assess and provide treatment. Patient denies feeling anxious, received pain medication a short time ago. Will continue to monitor.
[2018-12-25 05:53] LABS: BASOPHILS % (AUTO) 2.2 % (0.0-2.0); HEMATOCRIT 37.9 % (37.0-47.0); HEMOGLOBIN 12.9 G/DL (12.0-16.0); LYMPHOCYTES % (AUTO) 36.7 % (20.0-45.0); MEAN CORPUSCULAR VOLUME 89 FL (80-99); MONOCYTES % (AUTO) 7.4 % (1.0-10.0); NEUTROPHILS % (AUTO) 51.8 % (45.0-75.0); PLATELET COUNT 270 K/UL (150-450); RED BLOOD COUNT 4.24 M/UL (4.20-5.40); RED CELL DISTRIBUTION WIDTH 11.3 % (11.6-14.8); WHITE BLOOD COUNT 7.7 K/UL (4.8-10.8)
[2018-12-25 06:02] LABS: ANION GAP 4 mmol/L (5-15); BLOOD UREA NITROGEN 5 mg/dL (7-18); CALCIUM 8.3 MG/DL (8.5-10.1); CARBON DIOXIDE 27 MMOL/L (21-32); CHLORIDE 107 MMOL/L (98-107); CREATININE 0.8 MG/DL (0.55-1.30); POTASSIUM 3.5 MMOL/L (3.5-5.1); SODIUM 138 MMOL/L (136-145)
--- NOTE | 2018-12-25 07:17 | NUR ---
NURSE NOTES: Pt states she is in pain 8 " I do not want anything, I am going to try to sleep it off" Breakfast is at bedside. Will hold until pt is ready to eat. Will reassess short for need for pain medication. Call light is in reach
--- NOTE | 2018-12-25 07:35 | NUR ---
HAND-OFF: Report given to LALITA Randle.
[2018-12-25 08:00] VITALS: BP 115/71
[2018-12-25] MEDS: Docusate 100mg cap ORAL SCH ×2 (08:35→21:59)
[2018-12-25] MEDS: Enoxaparin 40mg Inj SUBQ SCH (08:38)
--- NOTE | 2018-12-25 09:13 | Consultation ---
History of Present Illness General Date patient seen: Dec 25, 2018 Present Illness Allergies: Coded Allergies: No Known Allergies (Unverified , 01/02/13) Medication History Scheduled Cyclobenzaprine Hcl* (Flexeril*), 10 MG ORAL Q8HR Ibuprofen* (Motrin*), 800 MG ORAL Q8H Nitrofurantoin Monohyd/M-Cryst* (Macrobid 100 Mg*), 100 MG ORAL EVERY 12 HOURS No Known Medications* (NKM - No Known Medications*), ., (Reported) Ofloxacin (Ocuflox), 3 ML OP TID Scheduled PRN Acetaminophen* (Tylenol Extra Strength*), 500 MG ORAL Q6H PRN for Mild Pain/ Temp > 100.5 Hydrocodone Bit/Acetaminophen 10-325* (Clements 10-325*), 1 TAB ORAL Q6H PRN for For Pain Hydrocodone Bit/Acetaminophen 5-325* ([place] 5-325*), 1 TAB ORAL Q6H PRN for For Pain Ibuprofen* (Motrin*), 600 MG ORAL Q8H PRN for For Pain Ibuprofen* (Motrin*), 600 MG ORAL Q8H PRN for For Pain Ibuprofen* (Motrin*), 600 MG ORAL Q8H PRN for For Pain Oxycodone/Acetaminophen 5-325* (Percocet 5-325 Mg Tablet*), 1 TAB ORAL Q6H PRN for For Pain Patient History Healthcare decision maker Resuscitation status Full Code Advanced Directive on File Physical Exam Last 24 Hour Vital Signs Date Time Temp Pulse Resp B/P (MAP) Pulse Ox O2 Delivery O2 Flow Rate FiO2 12/25/18 04:30 59 18 100 Room Air 21 56 18 99 12/25/18 04:29 56 18 99 Room Air 21 12/25/18 04:00 97.1 57 17 99/58 (72) 100 12/24/18 21:00 Room Air 12/24/18 20:00 98.0 58 18 126/73 (90) 100 12/24/18 16:41 98.3 12/24/18 16:00 98.3 52 18 121/75 (90) 98 12/24/18 12:00 98.3 53 18 115/62 (79) 98 Intake and Output 12/24/18 12/25/18 19:00 07:00 Intake Total 1295 ml 1305 ml Balance 1295 ml 1305 ml Intake Oral 720 ml 480 ml IV Total 575 ml 825 ml # Voids 3 4 Laboratory Tests Test 12/25/18 05:00 White Blood Count 7.7 K/UL (4.8-10.8) Red Blood Count 4.24 M/UL (4.20-5.40) Hemoglobin 12.9 G/DL (12.0-16.0) Hematocrit 37.9 % (37.0-47.0) Mean Corpuscular Volume 89 FL (80-99) Mean Corpuscular Hemoglobin 30.5 PG (27.0-31.0) Mean Corpuscular Hemoglobin Concent 34.1 G/DL (32.0-36.0) Red Cell Distribution Width 11.3 % (11.6-14.8) L Platelet Count 270 K/UL (150-450) Mean Platelet Volume 6.4 FL (6.5-10.1) L Neutrophils (%) (Auto) 51.8 % (45.0-75.0) Lymphocytes (%) (Auto) 36.7 % (20.0-45.0) Monocytes (%) (Auto) 7.4 % (1.0-10.0) Eosinophils (%) (Auto) 2.0 % (0.0-3.0) Basophils (%) (Auto) 2.2 % (0.0-2.0) H Sodium Level 138 MMOL/L (136-145) Potassium Level 3.5 MMOL/L (3.5-5.1) Chloride Level 107 MMOL/L (98-107) Carbon Dioxide Level 27 MMOL/L (21-32) Anion Gap 4 mmol/L (5-15) L Blood Urea Nitrogen 5 mg/dL (7-18) L Creatinine 0.8 MG/DL (0.55-1.30) Estimat Glomerular Filtration Rate > 60 mL/min (>60) Glucose Level 89 MG/DL (74-106) Calcium Level 8.3 MG/DL (8.5-10.1) L Magnesium Level 1.7 MG/DL (1.8-2.4) L Height (Feet): 5 Height (Inches): 10.00 Weight (Pounds): 200 Medications Current Medications Medications (Trade) Dose Ordered Sig/El Route PRN Reason Start Time Stop Time Status Last Admin Dose Admin Acetaminophen (Tylenol) 650 mg Q4H PRN ORAL Mild Pain (Pain Scale 1-3) 12/22/18 16:00 01/21/19 15:59 Acetaminophen (Tylenol) 650 mg Q4H PRN ORAL fever (T>100.5F) 12/22/18 16:00 01/21/19 15:59 Albuterol/ Ipratropium (Albuterol/ Ipratropium) 3 ml Q4H PRN HHN Shortness of Breath 12/22/18 16:00 12/27/18 15:59 12/25/18 04:27 Bisacodyl (Dulcolax) 10 mg HSPRN PRN RECTAL Constipation 12/22/18 16:00 01/21/19 15:59 Ceftriaxone Sodium 1 gm/ Dextrose 55 ml @ 110 mls/hr Q24H IVPB 12/22/18 18:00 12/29/18 17:59 12/24/18 17:15 Dextrose (Dextrose 50%) 25 ml Q30M PRN IV Hypoglycemia 12/22/18 16:00 01/21/19 15:59 Dextrose (Dextrose 50%) 50 ml Q30M PRN IV Hypoglycemia 12/22/18 16:00 01/21/19 15:59 Diphenhydramine HCl (Benadryl) 25 mg Q6H PRN ORAL Itching/Pruritis 12/22/18 16:00 01/21/19 15:59 Docusate Sodium (Colace) 100 mg EVERY 12 HOURS ORAL 12/22/18 21:00 01/21/19 20:59 12/25/18 08:35 Enoxaparin Sodium (Lovenox) 40 mg DAILY SUBQ 12/22/18 17:00 01/21/19 16:59 12/23/18 09:09 Hydromorphone HCl (Dilaudid) 1 mg Q4H PRN IVP Moderate Pain (Pain Scale 4-6) 12/22/18 16:00 12/29/18 15:59 12/23/18 17:29 Hydromorphone HCl (Dilaudid) 2 mg Q4H PRN IVP Severe Pain (Pain Scale 7-10) 12/22/18 16:00 12/29/18 15:59 12/25/18 08:37 Lidocaine (Lidoderm 5% PATCH) 1 patch Q24H TDERMAL 12/23/18 17:00 01/23/19 12:59 12/24/18 16:11 Lorazepam (Ativan 2mg/ml 1ml) 0.5 mg Q4H PRN IV For Anxiety 12/22/18 16:00 12/29/18 15:59 Magnesium Hydroxide (Mom) 30 ml HSPRN PRN ORAL Constipation 12/22/18 16:00 01/21/19 15:59 Ondansetron HCl (Zofran) 4 mg Q6H PRN IVP Nausea & Vomiting 12/22/18 16:00 01/21/19 15:59 Polyethylene Glycol (Miralax) 17 gm HSPRN PRN ORAL Constipation 12/22/18 16:00 01/21/19 15:59 Sodium Chloride 1,000 ml @ 75 mls/hr [id number] IVLG 12/22/18 17:00 01/21/19 16:59 12/25/18 02:00 Temazepam (Restoril) 15 mg HSPRN PRN ORAL Insomnia 12/22/18 16:00 12/29/18 15:59 Assessment/Plan Assessment/Plan: (1) Lumbar Radiculopathy (2) R/o Lumbar Herniated disc (3) Muscle spasm seen dictated Chuckie Ta Dec 25, 2018 09:13
[2018-12-25] MEDS ORDERED: HYDROmorphone 1mg/ml Carpuject IVP PRN (09:29)
[2018-12-25] MEDS ORDERED: Methocarbamol 500mg tab ORAL PRN (09:30)
--- NOTE | 2018-12-25 09:34 | NUR ---
NURSE NOTES: Dr Miramontes here earlier in shift gave instructions to ensure pt takes the MRI. Dilaudid given IV, Pt asked when pain began stated. " It began on tuesday I woke up and all a sudden I could not walk. " It is all in my knees, Pt asked when was the last time she experienced back pain did not answer replied " I miss my dogs and my grand kids, I miss work " Will reassess
--- NOTE | 2018-12-25 10:42 | General Progress Note ---
Assessment/Plan Problem List: (1) UTI (urinary tract infection) ICD Codes: N39.0 - Urinary tract infection, site not specified SNOMED: 83129757 (2) Low back pain ICD Codes: M54.5 - Low back pain SNOMED: 333183654 (3) Inability to walk ICD Codes: R26.2 - Difficulty in walking, not elsewhere classified SNOMED: 339323792 (4) Intractable pain ICD Codes: R52 - Pain, unspecified SNOMED: 57265109 Status: stable Assessment/Plan: This is a 48-year-old female who presented with severe 10 out of 10 low back pain radiating to her pelvis, urinary frequency and incontinence, bilateral CVA tenderness on exam. Inability to walk secondary to intractable pain. #UTI/pyelonephritis #Intractable low back pain and inability to walk likely secondary to urinary tract infection. Rule out any lumbar pathology including herniated disc etc MedSurg IV ceftriaxone 1 g daily IV NS at 75 mL/hr Follow-up urine culture MRI L-spine without contrast Pain control with acetaminophen, Dilaudid. Pain management consult with Dr. Cuba Physical therapy consult VTE PPX: Lovenox Gi ppx: None Code status: full code I spent 40 minutes on this encounter. Greater than 50% spent on counseling and care coordination. Subjective Date patient seen: Dec 25, 2018 ROS Limited/Unobtainable: No Constitutional: Reports: no symptoms, chills, diaphoresis, fever, malaise, other HEENT: Denies: no symptoms, eye pain, blurred vision, tearing, double vision, ear pain, ear discharge, nose pain, nose congestion, throat pain, throat swelling, mouth pain, mouth swelling, other Cardiovascular: Denies: no symptoms, chest pain, edema, irregular heart rate, lightheadedness, palpitations, syncope, other Respiratory: Denies: no symptoms, cough, orthopnea, shortness of breath, SOB with excertion, SOB at rest, sputum, stridor, wheezing, other Gastrointestinal/Abdominal: Denies: no symptoms, abdomen distended, abdominal pain, black stools, tarry stools, blood in stool, constipated, diarrhea, difficulty swallowing, nausea, poor appetite, poor fluid intake, rectal bleeding , vomiting, other Genitourinary: Denies: no symptoms, burning, discharge, frequency, flank pain, hematuria, incontinence, pain, urgency, other Endocrine: Denies: no symptoms, excessive sweating, flushing, intolerance to cold, intolerance to heat, increased hunger, increased thirst, increased urine, unexplained weight gain, unexplained weight loss, other Hematologic/Lymphatic: Denies: no symptoms, anemia, easy bleeding, easy bruising, other Allergies: Coded Allergies: No Known Allergies (Unverified , 01/02/13) Subjective curled up in bed, laying on one side. Says she's not much better. MRI spine today Objective Last 24 Hour Vital Signs Date Time Temp Pulse Resp B/P (MAP) Pulse Ox O2 Delivery O2 Flow Rate FiO2 12/25/18 09:00 Room Air 12/25/18 04:30 59 18 100 Room Air 21 56 18 99 12/25/18 04:29 56 18 99 Room Air 21 12/25/18 04:00 97.1 57 17 99/58 (72) 100 12/24/18 21:00 Room Air 12/24/18 20:00 98.0 58 18 126/73 (90) 100 12/24/18 16:41 98.3 12/24/18 16:00 98.3 52 18 121/75 (90) 98 12/24/18 12:00 98.3 53 18 115/62 (79) 98 Intake and Output 12/24/18 12/25/18 19:00 07:00 Intake Total 1295 ml 1305 ml Balance 1295 ml 1305 ml Intake Oral 720 ml 480 ml IV Total 575 ml 825 ml # Voids 3 4 Laboratory Tests 12/25/18 05:00: White Blood Count 7.7, Red Blood Count 4.24, Hemoglobin 12.9, Hematocrit 37.9, Mean Corpuscular Volume 89, Mean Corpuscular Hemoglobin 30.5, Mean Corpuscular Hemoglobin Concent 34.1, Red Cell Distribution Width 11.3L, Platelet Count 270, Mean Platelet Volume 6.4L, Neutrophils (%) (Auto) 51.8, Lymphocytes (%) (Auto) 36.7, Monocytes (%) (Auto) 7.4, Eosinophils (%) (Auto) 2.0, Basophils (%) (Auto ) 2.2H, Sodium Level 138, Potassium Level 3.5, Chloride Level 107, Carbon Dioxide Level 27, Anion Gap 4L, Blood Urea Nitrogen 5L, Creatinine 0.8, Estimat Glomerular Filtration Rate > 60, Glucose Level 89, Calcium Level 8.3L, Magnesium Level 1.7L Height (Feet): 5 Height (Inches): 10.00 Weight (Pounds): 200 Objective General Appearance: WD/WN, no apparent distress, overweight EENT: PERRL/EOMI Neck: non-tender, normal alignment Cardiovascular: normal peripheral pulses, normal rate Respiratory/Chest: lungs clear, normal breath sounds Abdomen: non tender, soft Extremities: normal range of motion 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 Dec 25, 2018 10:42
[2018-12-25 12:00] VITALS: BP 106/62
--- NOTE | 2018-12-25 13:05 | NUR ---
MRI LUMBAR W/O COMPLETED.
[2018-12-25] MEDS: HYDROcodone/Acetamin 10/325 tab ORAL PRN ×2 (13:16→22:14)
--- NOTE | 2018-12-25 15:15 | NUR ---
NURSE NOTES: Pt is scratching self sates that the pain medication given in AM is causing the itching. Dr Simmons, gave orders for Benadryl 25 mg po times one
[2018-12-25 16:00] VITALS: BP 118/79
--- NOTE | 2018-12-25 16:21 | Diagnostic Imaging Report ---
Indication: Back pain Technique: MRI examination of the lumbar spine was performed in a 1.5 Ava magnet. Sequences obtained include sagittal and axial T1 and T2 fast spin echo, and sagittal STIR. Comparison: none Findings: L4-5 demonstrates narrowing of the intervertebral disc with loss of the central T2 hyperintense signal. There is white based disc protrusion at this level indenting the anterior part of the thecal sac displacing the traversing right L5 nerve root and abutting the traversing left L5 nerve root. Mild narrowing of the central canal is present. There is moderate hypertrophy of the facets demonstrated at this level. There is narrowing of the lateral recess. Mild vertebral endplate spurs are present. Modic type II fatty signal noted at the vertebral endplates. L5-S1: Disc height is normal. There is a generalized concentric disc bulge indenting the anterior thecal sac. There is no canal or neural foraminal stenosis. L1-L2, L2-3 and L3-4 unremarkable. There is breathing motion artifact limiting evaluation. Conus medullaris is seen at T12-L1 and appears normal. Bone marrow signal is slightly heterogeneous at the endplates but otherwise normal. No paravertebral or paraspinous soft tissues mass, swelling or abnormal fluid collections are identified. IMPRESSION: Concentric disc bulge versus protrusion at L4-5 abutting the left traversing L5 nerve root and slightly displacing the right traversing L5 nerve root. Mild central canal stenosis. Moderate facet arthropathy. L5-S1 with mild concentric disc bulge and facet arthropathy.
--- NOTE | 2018-12-25 16:35 | NUR ---
CASE MANAGEMENT: REVIEW 12/24/18 SI:INTRACTABLE PAIN. 98.3 57 18 11 98% ON RA CA+ 8.4 MG 1.5 IS: IV CEFTRIAXONE Q24HR IVF NS @75HR GABAPENTIN PO TID ROBAXIN PO Q4/PRN LIDOCAINE TD Q24HR LOVENOX SQ QD : 3E MED SURG DCP: PATIENT TO BE DISCHARGED TO HOME ONCE MEDICALLY CLEARED CASE MANAGEMENT: REVIEW 12/25/18 SI:INTRACTABLE PAIN. 98.0 75 19 115/71 98% ON RA BUN 5 CA+ 8.3 MG 1.7 IS: IV CEFTRIAXONE Q24HR IVF NS @75HR GABAPENTIN PO TID ROBAXIN PO Q4/PRN LIDOCAINE TD Q24HR LOVENOX SQ QD :3E MED SURG DCP: PATIENT TO BE DISCHARGED TO HOME ONCE MEDICALLY CLEARED
[2018-12-25] MEDS: cefTRIAXone 1 GM in D5W 55 ML IVPB SCH (18:15)
--- NOTE | 2018-12-25 18:30 | Consultation ---
DATE OF CONSULTATION: 12/25/2018 PAIN MANAGEMENT CONSULTATION CONSULTING PHYSICIAN: Toma Cuba M.D. REFERRING PHYSICIAN: Savanah Hardwick M.D. PHYSICIAN CONTROL SPECIALIST: Elyse Murillo CHIEF COMPLAINT: Back pain. HISTORY OF PRESENT ILLNESS: This is a 48-year-old female, who is being seen on the Med/Surg floor of [facility] for initial pain management consultation. The patient was admitted under the care of Dr. Hardwick due to intractable low back pain and inability to ambulate. Reports that she has been having low back pain for the past week, worsening on Tuesday which she states she could not get out of bed and go to the bathroom and she describes the pain as a constant acute pain, rating it 10/10 at its worse, radiating down to bilateral lower extremities, increased with movement and reduced with medication. 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 Due to this, we were consulted so the patient would have adequate pain control while here in the hospital. MRI of lumbar spine was ordered, pending to be performed today. I discussed with the patient about adding gabapentin as well as muscle relaxant to her regimen and changing the Dilaudid to every 6 hours and adding [place] 10/325 every 4 hours as needed. She seems to understand and has no other complaints at this time. PAST MEDICAL HISTORY: Denies. PAST SURGICAL HISTORY: , hysterectomy, [place] butt lift. SOCIAL HISTORY: She is a smoker of tobacco and marijuana. Denies alcohol abuse and IV drug abuse. ALLERGIES: No known drug allergies. MEDICATIONS: Flexeril, ibuprofen, Macrobid, Ocuflox, Tylenol, [place], Percocet. REVIEW OF SYSTEMS: Denies rash, fever, chills, sweating, dizziness, drowsiness, sore throat, or change in weight. No shortness of breath or chest pain. No nausea, vomiting, diarrhea, blood in the stool or urine. No dysuria. She is complaining of back pain. PHYSICAL EXAMINATION: GENERAL: Alert, awake, and oriented. VITAL SIGNS: Blood pressure 128/67, heart rate is 57, oxygen saturation is 100%, respiratory rate 17 temperature 98.1 degrees Fahrenheit. HEENT: PERRLA. NECK: Range of motion is full in all directions. No tenderness to paracervical muscles. No adenopathy. LUNGS: Decreased breath sounds bilaterally. HEART: S1 and S2 regular. ABDOMEN: Soft and nontender. BACK: Range of motion decreased in flexion and extension with tenderness to paraspinal muscles. No tenderness to trapezius or rhomboid muscles. EXTREMITIES: Upper and lower extremity range of motion is full in directions. No cyanosis. No clubbing. No edema. Sensory is reduced. Reflexes are not obtainable. No adenopathy with SLR positive bilaterally. No adenopathy. ASSESSMENT AND PLAN: The patient is a 48-year-old female with lumbar radiculopathy rule out lumbar herniated disk, muscle spasm. The patient will be going for MRI of lumbar spine today. Dilaudid will be changed to every 6 hours as needed, 1 mg for severe pain. We will start the patient on [place] 10/325 one tablet every 4 hours as needed for moderate pain, Robaxin 500 mg tablet every 8 hours as needed for muscle spasm, and Neurontin 100 mg three times a day. The patient was discussed with Dr. Cuba and Dr. Cuba concurred. We will follow up with the patient. Thank you very much for the courtesy of this consultation. Toma Cuba M.D. MINDY Murillo DR: Anthony JOB#: [id number] CC: [id number]
[2018-12-25 20:00] VITALS: BP 140/85
[2018-12-26] VITALS: BP 114/76
[2018-12-26 04:00] VITALS: BP 131/75
[2018-12-26] MEDS: HYDROcodone/Acetamin 10/325 tab ORAL PRN ×2 (05:03→10:20)
--- NOTE | 2018-12-26 07:26 | NUR ---
NURSE NOTES: Received report from LALITA Holman. Pt is sleeping in bed. On RA, no complaints of pain or apparent distress noted. IV site intact and running fluids. Bed locked in lowest position, side rails up, call light within reach. Will continue to monitor.
--- NOTE | 2018-12-26 07:35 | NUR ---
HAND-OFF: Report given to LALITA Craven. Pt instable condition.
[2018-12-26 08:00] VITALS: BP 119/76
[2018-12-26] MEDS: Docusate 100mg cap ORAL SCH (08:28)
[2018-12-26] MEDS: Enoxaparin 40mg Inj SUBQ SCH (08:32)
--- NOTE | 2018-12-26 09:00 | General Progress Note ---
Assessment/Plan Assessment/Plan: (1) Lumbar Radiculopathy (2) Lumbar Herniated disc (3) Muscle spasm We will continued Neurontin and Robaxin [place] and Dilaudid. We recommend Transforaminal lumbar epidural injection to be done under fluoroscopy L4-5 to be performed as an outpt as well has extensive PT. An RX for Medrol dosepak, Neurontin, robaxin and [place] was written for patient in anticipation for discharge. D/w Dr. Cuba and he concurred. Subjective Date patient seen: Dec 26, 2018 Time patient seen: 08:30 - am Constitutional: Reports: weakness HEENT: Reports: no symptoms Cardiovascular: Reports: no symptoms Respiratory: Reports: no symptoms Gastrointestinal/Abdominal: Reports: no symptoms Genitourinary: Reports: no symptoms Neurologic/Psychiatric: Reports: weakness Endocrine: Reports: no symptoms Hematologic/Lymphatic: Reports: no symptoms Allergies: Coded Allergies: No Known Allergies (Unverified , 01/02/13) Subjective Patient is in bed and Dr. Simmons is at bedside. She continues to c/o back pain shooting into her legs. MRI was reviewed and d/w her option for Epidural injection as outpt. She seems to understand. Has uses one dose of Dilaudid in the last 24hrs. Will be discharged home as per Dr. Simmons. Objective Last 24 Hour Vital Signs Date Time Temp Pulse Resp B/P (MAP) Pulse Ox O2 Delivery O2 Flow Rate FiO2 12/26/18 08:00 97.9 57 18 119/76 (90) 98 12/26/18 04:00 98.2 51 17 131/75 (93) 94 12/26/18 00:00 99.1 55 17 114/76 (89) 96 12/25/18 21:00 Room Air 12/25/18 20:00 98.2 98 19 140/85 (103) 99 12/25/18 16:00 98.0 59 18 118/79 (92) 12/25/18 12:00 98.1 58 18 106/62 (77) 98 12/25/18 09:00 Room Air Intake and Output 12/25/18 12/26/18 19:00 07:00 Intake Total 1630 ml 480 ml Balance 1630 ml 480 ml Intake Oral 900 ml 480 ml IV Total 730 ml # Voids 2 1 Height (Feet): 5 Height (Inches): 10.00 Weight (Pounds): 200 General Appearance: no apparent distress, alert EENT: PERRL/EOMI, normal ENT inspection Neck: non-tender, normal alignment Cardiovascular: normal rate, regular rhythm Respiratory/Chest: lungs clear, normal breath sounds Abdomen: non tender, soft Extremities: non-tender Edema: no edema noted Generalized Neurologic: alert, oriented x 3 Skin: warm/dry Objective Procedure: MRI L Spine no Contrast Indication: Back pain Technique: MRI examination of the lumbar spine was performed in a 1.5 Ava magnet. Sequences obtained include sagittal and axial T1 and T2 fast spin echo, and sagittal STIR. Comparison: none Findings: L4-5 demonstrates narrowing of the intervertebral disc with loss of the central T2 hyperintense signal. There is white based disc protrusion at this level indenting the anterior part of the thecal sac displacing the traversing right L5 nerve root and abutting the traversing left L5 nerve root. Mild narrowing of the central canal is present. There is moderate hypertrophy of the facets demonstrated at this level. There is narrowing of the lateral recess. Mild vertebral endplate spurs are present. Modic type II fatty signal noted at the vertebral endplates. L5-S1: Disc height is normal. There is a generalized concentric disc bulge indenting the anterior thecal sac. There is no canal or neural foraminal stenosis. L1-L2, L2-3 and L3-4 unremarkable. There is breathing motion artifact limiting evaluation. Conus medullaris is seen at T12-L1 and appears normal. Bone marrow signal is slightly heterogeneous at the endplates but otherwise normal. No paravertebral or paraspinous soft tissues mass, swelling or abnormal fluid collections are identified. IMPRESSION: Concentric disc bulge versus protrusion at L4-5 abutting the left traversing L5 nerve root and slightly displacing the right traversing L5 nerve root. Mild central canal stenosis. Moderate facet arthropathy. L5-S1 with mild concentric disc bulge and facet arthropathy. Chuckie Ta Dec 26, 2018 09:00
--- NOTE | 2018-12-26 09:43 | Discharge Summary ---
Discharge Summary Hospital Course Date of Admission Dec 23, 2018 at 14:19 Date of Discharge 12/26/2018 Admitting Diagnosis -intractable pain, inability to walk. LAURE Maureen Verduzco is a 48 year old female who was admitted on Dec 23, 2018 at 14:19 for Intractable Pain, Inability To Walk Consultations Pain management Physical therapy Spine surgery; Unavailable Procedures MRI L spine Hospital Course This is a 48-year-old female who presented with severe 10 out of 10 low back pain radiating to her pelvis, urinary frequency and incontinence, bilateral CVA tenderness on exam. Inability to walk secondary to intractable pain. #UTI/pyelonephritis #Intractable low back pain and inability to walk, radiculopathy- Likely L spine disc issues. MedSurg IV ceftriaxone 1 g daily, finished 5 days s/p IV NS at 75 mL/hr Follow-up urine culture- no growth MRI L-spine without contrast: Concentric disc bulge versus protrusion at L4-5 abutting the left traversing L5 nerve root and slightly displacing the right traversing L5 nerve root. Mild central canal stenosis. Moderate facet arthropathy. L5-S1 with mild concentric disc bulge and facet arthropathy. Pain control with acetaminophen, Dilaudid. Pain management consult with Dr. [place] Physical therapy consult- seen ambulating independently with PT in view of MRI results, Spine surgery was consulted Dr. Purdy, unavailable, since no critical neural deficits, will see outpatient. Pain management offered outpatient options such as epidural steroid injections. Patient will be discharged with pain meds and medrol dosepak. She is advised to follow up with her primary care doctor to get referrals for sine surgery and pain management. VTE PPX: Lovenox Gi ppx: None Code status: full code On the day of discharge she is alert and oriented x3, walking with PT without assitance. lung cta bl, heart s1s2, ext no edema I spent 35 minutes on this encounter. Greater than 50% spent on counseling and care coordination. Discharge Medications New Medications: Hydrocodone Bit/Acetaminophen 5-325* ([place] 5-325*) 1 Each Tablet 1 TAB ORAL Q6H PRN, #10 TAB 0 Refills Methylprednisolone (Methylprednisolone*) 4MG Dspk 4 MG ORAL DIRECTED for 6 Days, #21 EA 0 Refills Day 1: Two tablets before breakfast, one after lunch, one after dinner, and two at bedtime. If started late in the day, take all six tablets at once or divide into two or three doses, unless otherwise directed by prescriber. Day 2: One tablet before breakfast, one after lunch, one after dinner, and two at bedtime Day 3: One tablet before breakfast, one after lunch, one after dinner, and one at bedtime Day 4: One tablet before breakfast, one after lunch, and one at bedtime Day 5: One tablet before breakfast and one at bedtime Day 6: One tablet before breakfast Gabapentin* (Gabapentin*) 100 Mg Capsule 300 MG ORAL THREE TIMES A DAY for 7 Days, #21 CAP Methocarbamol* (Robaxin-500*) 500 Mg Tablet 500 MG ORAL Q8H PRN for 7 Days, #21 TAB Discontinued Medications: Acetaminophen* (Tylenol Extra Strength*) 500 Mg Tablet 500 MG ORAL Q6H PRN for Mild Pain/Temp > 100.5, #30 TAB 0 Refills Cyclobenzaprine Hcl* (Flexeril*) 10 Mg Tablet 10 MG ORAL Q8HR for Muscle Spasm, #12 TAB 0 Refills Hydrocodone Bit/Acetaminophen 10-325* ([place] 10-325*) 1 Each Tablet 1 TAB ORAL Q6H PRN for For Pain, #10 TAB 0 Refills PRN PAIN Hydrocodone Bit/Acetaminophen 5-325* ([place] 5-325*) 1 Each Tablet 1 TAB ORAL Q6H PRN for For Pain, #12 TAB Ibuprofen* (Motrin*) 800 Mg Tablet 800 MG ORAL Q8H, #30 TAB Ibuprofen* (Motrin*) 600 Mg Tablet 600 MG ORAL Q8H PRN for For Pain, #15 TAB 0 Refills Ibuprofen* (Motrin*) 600 Mg Tablet 600 MG ORAL Q8H PRN for For Pain, #30 TAB 0 Refills Ibuprofen* (Motrin*) 600 Mg Tablet 600 MG ORAL Q8H PRN for For Pain, #20 TAB 0 Refills Nitrofurantoin Monohyd/M-Cryst* (Macrobid 100 Mg*) 100 Mg Capsule 100 MG ORAL EVERY 12 HOURS, #14 CAP 0 Refills No Known Medications* (NKM - No Known Medications*) . ., 0 Refills Ofloxacin (Ocuflox) 5 Ml Drops 3 ML OP TID for 5 Days, ML Oxycodone/Acetaminophen 5-325* (Percocet 5-325 Mg Tablet*) 1 Each Tablet 1 TAB ORAL Q6H PRN for For Pain, #12 TAB 0 Refills Discharge Condition Upon Discharge: stable Discharge Disposition Patient was discharged to home with PT Discharge Diagnoses: (1) L4-L5 disc bulge (2) Intractable pain (3) Inability to walk (4) UTI (urinary tract infection) Khanh Simmons M.D. Dec 26, 2018 09:43
[2018-12-26] MEDS ORDERED: GABAPENTIN100 MG ORAL (09:49)
[2018-12-26] MEDS ORDERED: MEDROL DOSEPAK4 MG ORAL (09:49)
[2018-12-26] MEDS ORDERED: ROBAXIN-500MG ORAL (09:49)
[2018-12-26] MEDS ORDERED: NORCO 5-325 TA1 EACH ORAL (09:49)
--- NOTE | 2018-12-26 09:51 | Discharge Instructions ---
Discharge Instructions Discharge Instructions Services at Discharge: physical therapy Activity: as tolerated Special Instructions follow up with primary care to get referrals to pain management for possible epidural injections and evaluation by spine surgery. For Congestive Heart Failure Reminder Report to your physician any weight gain of 5 pounds or more in one week. Khanh Simmons M.D. Dec 26, 2018 09:51
--- NOTE | 2018-12-26 10:53 | NUR ---
DISCHARGE PLANNING: PATIENT HAS BEEN REFERRED TO [facility] FOR OUTPATIENT PHYSICAL THERAPY T: [phone] AWAITING RESPONSE Addendum: 12/26/18 at 1520 by CHANCE MARKS LVN PATIENT WAS NOT ACCEPTED
--- NOTE | 2018-12-26 10:55 | NUR ---
NURSE NOTES: RN called [facility] and talked to Pepe. RN confirmed that he received the pt's DC prescription. He will deliver the meds by 1130.
--- NOTE | 2018-12-26 11:24 | NUR ---
NURSE NOTES: Called [facility] and confirmed about the outpatient Physical Therapy. She said she hasn't received authorization yet, but she will update the pt upon authorization. RN will provide the phone number to pt for PT.
--- NOTE | 2018-12-26 12:40 | NUR ---
NURSE NOTES: Pt discharged with all belongings, DC paperwork reviewed and signed by the pt. DC pain meds called into [facility] and delivered to the pt, pt and RN signed the paper. IV and ID band removed. Pt ambulatory, accompanied by her friend Kelli, taken down by SIRISHA Suazo by wheelchair. Pt stable for discharge.
--- NOTE | 2018-12-26 13:35 | NUR ---
*-* INSURANCE *-* ALL CLINICALS AND REVIEWS HAVE BEEN FAXED TO: [facility]DE[facility] REF#[id number] CM: ARIANE #[phone] EXT [id number] FAX#[phone] REVIEWS/CLINICALS
--- NOTE | 2018-12-26 15:21 | NUR ---
DISCHARGE PLANNIN# PATIENT HAS BEEN REFERRED TO [facility] FOR OUTPATIENT PHYSICAL THERAPY T: [phone] 2# PATIENT HAS BEEN REFERRED TO [facility] FOR OUTPATIENT PHYSICAL THERAPY T: [phone] AWAITING RESPONSE
== END 2018-12-26 12:40 | disposition home health service (06) | DRG 552 ==
LOC: EMR 10:02 → 3E 15:13 → EDBEDREQ 16:01 → 3E 17:00 → OBSVTOIN 12-23 14:19
DX: M51.16 Intervertebral disc disorders with radiculopathy, lumbar region (principal); N39.0 Urinary tract infection, site not specified; E66.9 Obesity, unspecified; Z68.28 Body mass index [BMI] 28.0-28.9, adult; R26.2 Difficulty in walking, not elsewhere classified; F17.200 Nicotine dependence, unspecified, uncomplicated; E83.42 Hypomagnesemia; M62.838 Other muscle spasm
CPT/HCPCS: 36415; 72148; 74177; 76830; 76856; 80048; 80053; 80307; 81003; 81025; 83690; 83735; 85025; 94640; 94664; 96361; 96374; 96375; 96376; 99285; J7030; J7620